=== PATIENT | female | born 1970 | race Caucasian/White ===

== ENCOUNTER 2017-03-15 10:26 | Observation (INO) | payer BC ==
[~2017-03-15] VITALS: Ht 175.3 cm; Wt 92.0 kg
[2017-03-15 10:28] VITALS: BP 193/102; PULSE 75; RESP 15; TEMP 97.7; O2SAT 99
[2017-03-15 10:40] VITALS: BP 182/94; PULSE 66; RESP 18; O2SAT 98
[2017-03-15] MEDS ORDERED: ESTR.625 PO (10:48)
[2017-03-15] MEDS ORDERED: LISI10TA PO (10:48)
[2017-03-15] MEDS ORDERED: ATEN100T PO (10:48)
[2017-03-15 10:55] VITALS: O2SAT 99
[2017-03-15] MEDS ORDERED: SODIUM CHLORIDE 0.9% FLUSH 10 ML FLUSH IVF PRN (11:00)
--- NOTE | 2017-03-15 11:19 | RADRPT ---
EXAM DATE/TIME: 03/15/2017 10:50 [place] COMPARISON: No previous studies available for comparison. INDICATIONS : Chest pain MEDICAL HISTORY : Hypertension. SURGICAL HISTORY : None. ENCOUNTER: Initial ACUITY: 3 days PAIN SCORE: 2/10 LOCATION: Bilateral chest FINDINGS: A single view of the chest demonstrates the lungs to be symmetrically aerated without evidence of mas s, infiltrate or effusion. The cardiomediastinal contours are unremarkable. Osseous structures are intact. CONCLUSION: Normal examination. Braxton Ricardo MD on March 15, 2017 at 11:18 Board Certified Radiologist. This report was verified electronically.
[2017-03-15 11:24] LABS: AUTOMATED NEUTROPHIL # 8.5 TH/MM3 (1.8-7.7); BASOPHIL # 0.1 TH/MM3 (0-0.2); BASOPHIL % 0.5 % (0.0-2.0); EOSINOPHIL # 0.1 TH/MM3 (0-0.4); EOSINOPHIL % 0.5 % (0.0-4.0); HEMATOCRIT 45.6 % (35.0-46.0); HEMO FLAGS DIFF FINAL; LYMPH % 16.5 % (9.0-44.0); LYMPHOCYTE # 1.8 TH/MM3 (1.0-4.8); MEAN CELL VOLUME 90.8 FL (80.0-100.0); MEAN CORPUSCULAR HEMOGLOBIN 29.7 PG (27.0-34.0); MEAN CORPUSCULAR HGB CONC 32.7 % (32.0-36.0); MONO % 5.6 % (0.0-8.0); NEUT % 76.9 % (16.0-70.0); PLATELET COUNT 277 TH/MM3 (150-450); RED BLOOD COUNT 5.03 MIL/MM3 (4.00-5.30); RED CELL DISTRIBUTION WIDTH 13.5 % (11.6-17.2); WHITE BLOOD COUNT 11.1 TH/MM3 (4.0-11.0)
[2017-03-15] MEDS ORDERED: ASPIRIN 81 MG CHEW TAB CHEW ONE (11:30)
--- NOTE | 2017-03-15 11:31 | PD ---
HPI Chief Complaint: Cardiac Complaint Time Seen by Provider: 11:17 Travel History International Travel<30 days: No Contact w/Intl Traveler<30days: No Traveled to known affect area: No History of Present Illness HPI 46 year old female presents to the emergency department for evaluation of midsternal/right sided chest pain that started last night. She states it has been intermittent since. Patient denies any aggravating/relieving factors. She states it feels like a tightness. She also reports pain to the left shoulder. Patient states she feels like it is hard to take a deep breath. She reports nausea, but no vomiting. She states she felt slightly diaphoretic last night as well. No fevers or congestion. She reports mild cough. Patient reports history of HTN, was on atenolol and lisinopril, but has only been taking the atenolol lately. She denies any leg edema. No hemoptysis. No fevers. Patient states she traveled to [place], [place] last weekend to visit family. She denies any history of PE/DVT. Patient has not taken any ASA today. She denies ever having this pain before. She reports history of lap band and hysterectomy. She states she had some sort of cardiac testing several years ago before lap band surgery, but no recent stress test or cardiac catheterization. PFSH Past Medical History Hypertension: Yes Tetanus Vaccination: > 5 Years Influenza Vaccination: No ?: Not : 2 Para: 2 Past Surgical History Abdominal Surgery: Yes (LAP BAND 2013) Hysterectomy: Yes Social History Alcohol Use: Yes ([facility]) Tobacco Use: No Substance Use: No Allergies-Medications (Allergen,Severity, Reaction): Coded Allergies: No Known Allergies (Unverified , 03/15/17) Reported Meds & Prescriptions Reported Meds & Active Scripts Active Reported Lisinopril-Hctz 10-12.5 Mg Tab 1 Tab PO DAILY Premarin (Estrogens Conjugated) 0.625 Mg Tab 0.625 Mg PO DAILY Atenolol 100 Mg Tab 100 Mg PO DAILY Review of Systems Except as stated in HPI: all other systems reviewed are Neg Physical Exam Narrative GENERAL: Well-nourished, well-developed female patient, ambulatory and in no acute distress. Afebrile. SKIN: Focused skin assessment warm/dry. HEAD: Normocephalic. Atraumatic. EYES: No scleral icterus. No injection or drainage. NECK: Supple, trachea midline. No JVD or lymphadenopathy. CARDIOVASCULAR: Regular rate and rhythm without murmurs, gallops, or rubs. RESPIRATORY: Breath sounds equal bilaterally. No accessory muscle use. Lungs sounds are clear to auscultation. GASTROINTESTINAL: Abdomen soft, non-tender, nondistended. MUSCULOSKELETAL: No cyanosis, or edema. No reproducible chest pain to palpation BACK: Nontender without obvious deformity. No CVA tenderness. Data Data Last Documented VS Vital Signs Date Time Temp Pulse Resp B/P Pulse Ox O2 Delivery O2 Flow Rate FiO2 03/15/17 10:55 99 03/15/17 10:40 66 18 Room Air 03/15/17 10:40 182/94 03/15/17 10:28 97.7 Orders Electrocardiogram (03/15/17 10:50) B-Type Natriuretic Peptide (03/15/17 10:50) Ckmb (Isoenzyme) Profile (03/15/17 10:50) Complete Blood Count With Diff (03/15/17 10:50) Comprehensive Metabolic Panel (03/15/17 10:50) D-Dimer (03/15/17 10:50) Magnesium (Mg) (03/15/17 10:50) Prothrombin Time / Inr (Pt) (03/15/17 10:50) Act Partial Throm Time (Ptt) (03/15/17 10:50) Troponin I (03/15/17 10:50) Chest, Single Ap (03/15/17 10:50) Ecg Monitoring (03/15/17 10:50) Iv Access Insert/Monitor (03/15/17 10:50) Oximetry (03/15/17 10:50) Sodium Chloride 0.9% Flush (Ns Flush) (03/15/17 11:00) Aspirin Chew (Aspirin Chew) (03/15/17 11:30) CKMB (03/15/17 10:56) CKMB% (03/15/17 10:56) Labs Laboratory Tests Test 03/15/17 10:56 White Blood Count 11.1 TH/MM3 Red Blood Count 5.03 MIL/MM3 Hemoglobin 14.9 GM/DL Hematocrit 45.6 % Mean Corpuscular Volume 90.8 FL Mean Corpuscular Hemoglobin 29.7 PG Mean Corpuscular Hemoglobin 32.7 % Concent Red Cell Distribution Width 13.5 % Platelet Count 277 TH/MM3 Mean Platelet Volume 8.8 FL Neutrophils (%) (Auto) 76.9 % Lymphocytes (%) (Auto) 16.5 % Monocytes (%) (Auto) 5.6 % Eosinophils (%) (Auto) 0.5 % Basophils (%) (Auto) 0.5 % Neutrophils # (Auto) 8.5 TH/MM3 Lymphocytes # (Auto) 1.8 TH/MM3 Monocytes # (Auto) 0.6 TH/MM3 Eosinophils # (Auto) 0.1 TH/MM3 Basophils # (Auto) 0.1 TH/MM3 CBC Comment DIFF FINAL Differential Comment Prothrombin Time 10.1 SEC Prothromb Time International 0.9 RATIO Ratio Activated Partial 25.4 SEC Thromboplast Time D-Dimer Quantitative (PE/DVT) 0.26 MG/L FEU Sodium Level 141 MEQ/L Potassium Level 3.8 MEQ/L Chloride Level 108 MEQ/L Carbon Dioxide Level 24.9 MEQ/L Anion Gap 8 MEQ/L Blood Urea Nitrogen 12 MG/DL Creatinine 0.78 MG/DL Estimat Glomerular Filtration 80 ML/MIN Rate Random Glucose 81 MG/DL Calcium Level 9.9 MG/DL Magnesium Level 2.2 MG/DL Total Bilirubin 0.5 MG/DL Aspartate Amino Transf 20 U/L (AST/SGOT) Alanine Aminotransferase 21 U/L (ALT/SGPT) Alkaline Phosphatase 100 U/L Total Creatine Kinase 120 U/L Creatine Kinase MB 1.3 NG/ML Troponin I LESS THAN 0.02 NG/ML B-Type Natriuretic Peptide 27 PG/ML Total Protein 7.5 GM/DL Albumin 3.8 GM/DL [facility] Medical Decision Making Medical Screen Exam Complete: Yes Emergency Medical Condition: Yes Medical Record Reviewed: Yes Interpretation(s) Last Impressions Chest X-Ray 03/15/17 1050 Signed Impressions: Service Date/Time: Wednesday, March 15, 2017 10:50 - CONCLUSION: Normal examination. Braxton Ricardo MD Differential Diagnosis ACS versus chest wall pain versus pneumonia versus pneumothorax versus PE Narrative Course 46-year-old female presents to the emergency department for evaluation of chest pain that started last night and has been intermittent since. She denies any aggravating or relieving factors. Patient given aspirin 162 mg by mouth. EKG shows sinus rhythm, HR 63, no acute ST changes. CBC, CMP, CK, troponin, magnesium, BNP. CK, troponin, PTT, PT/INR, d-dimer are ordered and pending. CBC shows leukocytosis of 11.1. CMP shows no acute abnormality. CK is 120. Troponin is less than 0.02. Magnesium is 2.2. BNP is 27. Coags shows no acute abnormality. D-dimer is 0.26. Chest x-ray is normal. Patient will be admitted for 23 observation to the chest pain center for further evaluation. Patient verbalizes agreement to this. Diagnosis Primary Impression: Chest pain Qualified Code: R07.9 - Chest pain, unspecified type Admitting Information Admitting Physician Requests: Observation Stacy Gross Mar 15, 2017 11:31
[2017-03-15 11:35] LABS: APTT (PATIENT) 25.4 SEC (24.3-30.1); INTERNATIONAL NORMALIZED RATIO 0.9 RATIO; PROTHROMBIN TIME - PATIENT 10.1 SEC (9.8-11.6)
[2017-03-15 11:41] LABS: ALKALINE PHOSPHATASE 100 U/L (45-117); CREATINE KINASE 120 U/L (26-192); TOTAL BILIRUBIN ADULT 0.5 MG/DL (0.2-1.0)
[2017-03-15 11:52] LABS: ALT (GPT) 21 U/L (10-53); ANION GAP 8 MEQ/L (5-15); AST (GOT) 20 U/L (15-37); BICARBONATE 24.9 MEQ/L (21.0-32.0); BLOOD UREA NITROGEN 12 MG/DL (7-18); CHLORIDE 108 MEQ/L (98-107); GLOMERULAR FILTRATION RATE 80 ML/MIN (>89); MAGNESIUM 2.2 MG/DL (1.5-2.5); POTASSIUM 3.8 MEQ/L (3.5-5.1); SODIUM (NA) 141 MEQ/L (136-145)
[2017-03-15 11:53] LABS: CKMB 1.3 NG/ML (0.5-3.6)
[2017-03-15 13:07] VITALS: O2SAT 99
--- NOTE | 2017-03-15 13:11 | HHI.HP ---
HPI Primary Care Physician No Primary Care Physician Chief Complaint Chest pain History of Present Illness This is a 46-year-old female that presents to ED via private vehicle with a complaint of intermittent central chest tightness discomforts radiating to her left shoulder that began last night and had been intermittent since. She estimates they last about 10 minutes and recurred 6 times. It felt as if she is having a hard time getting in a deep breath. Occasional mild nausea as well as occasionally being mild diaphoretic. She's not had these symptoms before. Patient has history of hypertension and states she's diagnosed about 20 years ago. She moved about a year ago and does not have a primary care physician this area. States he ran out of the lisinopril/HCTZ about a month ago but still has atenolol. She recalls working on the he yesterday but really did not feel ill at all. She recently traveled to [place] to visit family. She is not no swelling her legs. Denies inspirational chest discomfort. Review of Systems General: Patient denies fevers, chills. Recently travel to [place] to visit family. HEENT: Patient denies headache, sore throat, difficulty swallowing. Cardiovascular: Has the chest discomfort as mentioned above. Denies sensation of heart beating rapidly or irregularly. No syncope. Mild diaphoresis. Respiratory: Denies shortness of breath or inspirational chest discomfort but states that it seemed as if it was heart beating in a deep breath. Denies coughing wheezing or hemoptysis. GI: Mild nausea. Patient denies vomiting, diarrhea, abdominal pain, bloody stools. Musculoskeletal: Patient denies joint pain or edema. Denies calf pain or edema. Neurovascular: Patient denies numbness, tingling, weakness in extremities. Denies headache. Endocrine: Denies polyuria and polydipsia. Hematologic: Denies easy bruising. Skin: Denies rash or itching. Past Family Social History Allergies: Coded Allergies: No Known Allergies (Unverified , 03/15/17) Past Medical History Hypertension. Denies hyperlipidemia diabetes and CAD. Past Surgical History Hysterectomy. LAP-BAND couple years ago. Reported Medications Reported Meds & Active Scripts Active Reported Lisinopril-Hctz 10-12.5 Mg Tab 1 Tab PO DAILY Premarin (Estrogens Conjugated) 0.625 Mg Tab 0.625 Mg PO DAILY Atenolol 100 Mg Tab 100 Mg PO DAILY Active Ordered Medications Current Medications Medications (Trade) Dose Ordered Sig/Shane Route Start Time Stop Time Status Last Admin (NS Flush) 2 ml UNSCH PRN IVF 03/15/17 11:00 (NS Flush) 2 ml UNSCH PRN IVF 03/15/17 13:15 UNV (NS Flush) 2 ml BID IVF 03/15/17 21:00 UNV (Tylenol) 500 mg Q4H PRN PO 03/15/17 13:15 UNV ([place] 7.5-325 Mg) 1 tab Q4H PRN PO 03/15/17 13:15 UNV (Zofran Inj) 4 mg Q6H PRN IV 03/15/17 13:15 UNV (Aspirin) 325 mg DAILY PO 03/16/17 09:00 UNV Family History States that her father had an ND at age 42. Social History Patient is a nonsmoker. Physical Exam Vital Signs Vital Signs Date Time Temp Pulse Resp B/P Pulse Ox O2 Delivery O2 Flow Rate FiO2 03/15/17 10:55 99 03/15/17 10:40 66 18 100 Room Air 03/15/17 10:40 66 18 182/94 98 Room Air 03/15/17 10:28 97.7 75 15 193/102 99 Physical Exam GENERAL: This is a well-nourished, well-developed patient, in no apparent distress. Patient speaks in clear complete sentences. Patient is pleasant. HEENT: Head is atraumatic and normocephalic. Neck is supple without lymphadenopathy and trachea is midline. No JVD or carotid bruits. CARDIOVASCULAR: Regular rate and rhythm without murmurs, gallops, or rubs. RESPIRATORY: Clear to auscultation. Breath sounds equal bilaterally. No wheezes , rales, or rhonchi. Chest wall is nontender. No use of accessory muscles. GASTROINTESTINAL: Abdomen is nontender, nondistended. Abdomen soft. No obvious pulsatile mass or bruit. No CVA tenderness. Strong femoral pulses bilaterally. Normal bowel sounds in all quadrants. MUSCULOSKELETAL: Patient is moving upper and lower extremities freely. No calf tenderness or edema, no Homans sign. Strong pulses in upper and lower extremities. NEUROLOGICAL: Patient is alert and oriented. Cranial nerves 2-12 are grossly intact. No focal deficits and speech is clear. SKIN: No rash and turgor is normal. Laboratory Laboratory Tests Test 03/15/17 10:56 White Blood Count 11.1 Red Blood Count 5.03 Hemoglobin 14.9 Hematocrit 45.6 Mean Corpuscular Volume 90.8 Mean Corpuscular Hemoglobin 29.7 Mean Corpuscular Hemoglobin 32.7 Concent Red Cell Distribution Width 13.5 Platelet Count 277 Mean Platelet Volume 8.8 Neutrophils (%) (Auto) 76.9 Lymphocytes (%) (Auto) 16.5 Monocytes (%) (Auto) 5.6 Eosinophils (%) (Auto) 0.5 Basophils (%) (Auto) 0.5 Neutrophils # (Auto) 8.5 Lymphocytes # (Auto) 1.8 Monocytes # (Auto) 0.6 Eosinophils # (Auto) 0.1 Basophils # (Auto) 0.1 CBC Comment DIFF FINAL Differential Comment Prothrombin Time 10.1 Prothromb Time International 0.9 Ratio Activated Partial 25.4 Thromboplast Time D-Dimer Quantitative (PE/DVT) 0.26 Sodium Level 141 Potassium Level 3.8 Chloride Level 108 Carbon Dioxide Level 24.9 Anion Gap 8 Blood Urea Nitrogen 12 Creatinine 0.78 Estimat Glomerular Filtration 80 Rate Random Glucose 81 Calcium Level 9.9 Magnesium Level 2.2 Total Bilirubin 0.5 Aspartate Amino Transf 20 (AST/SGOT) Alanine Aminotransferase 21 (ALT/SGPT) Alkaline Phosphatase 100 Total Creatine Kinase 120 Creatine Kinase MB 1.3 Troponin I LESS THAN 0.02 B-Type Natriuretic Peptide 27 Total Protein 7.5 Albumin 3.8 Result Diagram: 03/15/17 1056 03/15/17 1056 Imaging Last 24 hours Impressions Chest X-Ray 03/15/17 1050 Signed Impressions: Service Date/Time: Wednesday, March 15, 2017 10:50 - CONCLUSION: Normal examination. Braxton Ricardo MD Course Initial EKG has sinus rhythm without significant ST segment depressions or elevations. Assessment and Plan Assessment and Plan * Atypical chest pain: Patient will let repeated cardiac enzymes and EKGs. She has been seen by Dr. Person cardiology and the chest pain center. We will do a Neil protocol ETT if she rules out. She'll be discharged home if her stress test is nonischemic. She should follow-up with a local primary care physician. * Hypertension: We'll refill lisinopril-HCTZ. Continue atenolol. She will need to follow-up with local doctor. Patient is stable at this time. She is agreeable to this plan. Kenton Cotto Mar 15, 2017 13:11
--- NOTE | 2017-03-15 13:14 | PD.CARD.PN ---
Subjective Subjective Remarks S: Patient seen and examined with PA. She has a hx of HTN and has run out of some of her meds about a month ago. Was with her boyfriend in [place] yesterday showing dogs. She did some washing and lifting of dogs but no strenuous exertion although she comments on how hot it was. Last evening in bed about 9 pm she had sudden episode of right midline chest pain. This lasted about 10 min and was associated with some feeling of difficulty getting her breath. This resolved and she went to sleep but awoke another 5 times with similar episodes. Also co slight nausea with these episodes. She has a hx of lap banding some years ago but no problems recently. O: HEENT as recorded and negative NECK NO JVD OR BRUIT CHEST Clear to AP CV RSR no GRM ABD No guarding or rebound and no masses A: CP of new onset HTN Lap banding P: RO by protocol If neg then ETT and disch if that is negative. Discussed need for med compliance and observing low salt dietj Needs to establish with local PCP Objective Vital Signs / I&O Vital Signs Date Time Temp Pulse Resp B/P Pulse Ox O2 Delivery O2 Flow Rate FiO2 03/15/17 10:55 99 03/15/17 10:40 66 18 100 Room Air 03/15/17 10:40 66 18 182/94 98 Room Air 03/15/17 10:28 97.7 75 15 193/102 99 Laboratory Laboratory Tests Test 03/15/17 10:56 White Blood Count 11.1 TH/MM3 Red Blood Count 5.03 MIL/MM3 Hemoglobin 14.9 GM/DL Hematocrit 45.6 % Mean Corpuscular Volume 90.8 FL Mean Corpuscular Hemoglobin 29.7 PG Mean Corpuscular Hemoglobin 32.7 % Concent Red Cell Distribution Width 13.5 % Platelet Count 277 TH/MM3 Mean Platelet Volume 8.8 FL Neutrophils (%) (Auto) 76.9 % Lymphocytes (%) (Auto) 16.5 % Monocytes (%) (Auto) 5.6 % Eosinophils (%) (Auto) 0.5 % Basophils (%) (Auto) 0.5 % Neutrophils # (Auto) 8.5 TH/MM3 Lymphocytes # (Auto) 1.8 TH/MM3 Monocytes # (Auto) 0.6 TH/MM3 Eosinophils # (Auto) 0.1 TH/MM3 Basophils # (Auto) 0.1 TH/MM3 CBC Comment DIFF FINAL Differential Comment Prothrombin Time 10.1 SEC Prothromb Time International 0.9 RATIO Ratio Activated Partial 25.4 SEC Thromboplast Time D-Dimer Quantitative (PE/DVT) 0.26 MG/L FEU Sodium Level 141 MEQ/L Potassium Level 3.8 MEQ/L Chloride Level 108 MEQ/L Carbon Dioxide Level 24.9 MEQ/L Anion Gap 8 MEQ/L Blood Urea Nitrogen 12 MG/DL Creatinine 0.78 MG/DL Estimat Glomerular Filtration 80 ML/MIN Rate Random Glucose 81 MG/DL Calcium Level 9.9 MG/DL Magnesium Level 2.2 MG/DL Total Bilirubin 0.5 MG/DL Aspartate Amino Transf 20 U/L (AST/SGOT) Alanine Aminotransferase 21 U/L (ALT/SGPT) Alkaline Phosphatase 100 U/L Total Creatine Kinase 120 U/L Creatine Kinase MB 1.3 NG/ML Troponin I LESS THAN 0.02 NG/ML B-Type Natriuretic Peptide 27 PG/ML Total Protein 7.5 GM/DL Albumin 3.8 GM/DL Seymour Person MD Mar 15, 2017 13:14
[2017-03-15 13:15] VITALS: BP 136/79; PULSE 63; RESP 18; O2SAT 98
[2017-03-15] MEDS ORDERED: SODIUM CHLORIDE 0.9% FLUSH 5 ML FLUSH IVF PRN (13:15)
[2017-03-15] MEDS ORDERED: LISINOPRIL 10 MG TAB PO ONE (13:15)
[2017-03-15] MEDS ORDERED: ONDANSETRON HCL 4 MG/2 ML VIAL IV PRN (13:15)
[2017-03-15] MEDS ORDERED: ACETAMINOPHEN 500 MG CPLT PO PRN (13:15)
[2017-03-15] MEDS ORDERED: ACETAMINOPHEN/HYDROcodone 325 MG/7.5 MG TAB PO PRN (13:15)
[2017-03-15 14:11] LABS: CREATINE KINASE 96 U/L (26-192)
--- NOTE | 2017-03-15 16:30 | HHI.DCPOC ---
Discharge Care Plan Diagnosis: (1) Chest pain (2) Hypertension Goals to Promote Your Health * To prevent worsening of your condition and complications * To maintain your health at the optimal level Directions to Meet Your Goals Take your medications as prescribed Follow your dietary instruction Follow activity as directed Keep your appointments as scheduled Take your immunizations and boosters as scheduled If your symptoms worsen call your PCP, if no PCP go to Urgent Care Center or Emergency Room Smoking is Dangerous to Your Health. Avoid second hand smoke Call the 24-hour hour crisis hotline for domestic abuse at Kenton Cotto Mar 15, 2017 16:30
[2017-03-15] MEDS ORDERED: SODIUM CHLORIDE 0.9% FLUSH 5 ML FLUSH IVF SCH (21:00)
--- NOTE | 2017-03-16 08:01 | EKG ---
Date Performed: 03/15/2017 Time Performed: 10:50:40 PTAGE: 46 years EKG: Sinus rhythm NORMAL ECG NO PREVIOUS TRACING DOCTOR: Howard Shah Interpretating Date/Time 03/16/2017 08:00:46
--- NOTE | 2017-03-16 08:01 | EKG ---
Date Performed: 03/15/2017 Time Performed: 13:37:51 PTAGE: 46 years EKG: SINUS BRADYCARDIA POSSIBLE INFERIOR MYOCARDIAL INFARCTION BORDERLINE ECG NO PREVIOUS TRACING DOCTOR: Howard Shah Interpretating Date/Time 03/16/2017 08:00:37
--- NOTE | 2017-03-16 08:04 | TR ---
Date Performed: 03/15/2017 Time Performed: 15:14:59 DOCTOR: Howard Shah DRUG LIST: CLINICAL HISTORY: REASON FOR TEST: Chest pain REASON FOR ENDING: OBSERVATION: CONCLUSION: JOHN PROTOCOL ETT. NO CP. TEST STOPPED AFTER EXCEEDING GOAL HR SECONDARY TO SOB AND LEG FATIGUE.Maximum FP=984 % Max HR Ujsucdnz=419.0% Maximum GB=760/94 Total Exercise Time=10:00 COMMENTS: Patient exercised using the John protocol. No electrocardiographic changes were seen to suggest ischemia. Hemodynamic response to exercise was normal. No significant arrhythmia was prese nt.
[2017-03-16] MEDS ORDERED: ASPIRIN 325 MG TAB PO SCH (09:00)
== END 2017-03-15 16:45 | disposition home or self-care (01) ==
LOC: NEPC 10:26 → NEDA 12:13 → NEPFCDU 14:29
PROVIDERS: ADMIT Internal Medicine Interventional Cardiology; ATTEND Internal Medicine Interventional Cardiology
DX: R07.89 Other chest pain (principal); I10 Essential (primary) hypertension; R11.0 Nausea; R61 Generalized hyperhidrosis; M25.512 Pain in left shoulder; R05 Cough; D72.829 Elevated white blood cell count, unspecified; R00.1 Bradycardia, unspecified; Z79.899 Other long term (current) drug therapy; Z98.84 Bariatric surgery status
CPT/HCPCS: 71010; 80053; 82550; 82552; 83735; 83880; 84484; 85025; 85379; 85610; 85730; 93005; 93017; 99285; G0378